=== PATIENT | female | born 1965 | race Caucasian/White ===

== ENCOUNTER 2019-07-21 11:49 | Emergency (ER) | payer BC ==
--- OUTSIDE RECORDS SUMMARY | 2019-07-21 13:38 | XMS REPORT | Continuity of Care Document ---
:1965 Author Organization [facility] Care Team Providers Name Role Phone ROSIE STANTON Primary Care Physician Allergies and Intolerances No Allergy Data in the System Medications No Known Medications Medications At Time Of Discharge No data in the system Problems No Data in the system Procedures Code Code System Procedure Date 71005 CPT4 93429 COLONOSCOPY W/BIOPSY SINGLE/MULTIP 05/21/2019 Results Pathology Results Order:PATHOLOGY CYTOLOGY HISTOLCollected Date : 05/21/2019 12:00:00 AM TISSUE RECTAL POLYP CLINICAL DIAGNOSIS SCREENING FINAL DIAGNOSIS COLON, RECTUM, POLYPECTOMY: FRAGMENTS OF HYPERPLASTIC POLYP. GROSS A. SPECIMEN IS RECEIVED IN FORMALIN LABELLED TAWNY ALFARO, WITH MEDICAL RECORD NUMBER, DATE OF AND "POLYP, RECTUM", AND CONSISTS OF A 0.2 CM. IN DIAMETER FRAGMENT OF BOWLING TISSUE. THE ENTIRE CONTENTS OF THE CONTAINER IS SUBMITTED IN 1 CASSETTE. (CG/BONG) NILSA JARQUIN D.O. , PATHOLOGIST (CASE SIGNED 05/22/2019) Social History Code Code System Social History Observation Description Dates Observed 618371754 SNOMED CT Current Smoking Status Never smoker UNK AdministrativeGender Sex Assigned At Unknown Vital Signs No data in the system Goals Section No data in the system Health Concerns No data in the systemEncounter Diagnosis Date Code Code System Diagnosis Status Z12.11 ICD10 ENC SCREEN MALIG NEOPLASM COLON Active Advance Directives *RHIO - CONSENT IS YES Directive Type Effective Date Grinding Room Inspector Notes Supporting Document Name Address Phone No Directive Type 05/21/2019 8:00:08 Not Specified Not Specified Not Specified None No specified AM Encounters Encounter Diagnosis Location Date ENC SCREEN MALIG NEOPLASM COLON [facility] 05/21/2019 Family History Family history not obtained Functional Status No data in the system Immunizations No data in the system Medical Equipment No data in the system Mental Status No data in the system Assessment and Plan Assessments No data in the systemPlan Of Treatment No data in the systemPending Tests No data in the system Hospital Discharge Instructions No data in the system Reason for Visit No data in the system
--- OUTSIDE RECORDS SUMMARY | 2019-07-21 13:38 | XMS REPORT ---
:[address] [facility] Address [address] [place] [address] Care Team Providers Name Role Phone Halima Galvan Unavailable Unavailable PROBLEMS Type Condition ICD9-CM Code ANN80-QF Code Onset Condition SNOMED Code Dates Status Problem Leiomyoma of D25.9 Active 16941484 uterus, unspecified Problem Family history Z80.3 Active 244256904 of malignant neoplasm of breast ALLERGIES No Known Allergies ENCOUNTERS Encounter Location Date Diagnosis [facility] [address] [place] [address] Jun, Encounter for [address] [place], gynecological examination [place] [id number] (general) (routine) with abnormal findings Z01.411 ; Family history of malignant neoplasm of breast Z80.3 ; Encounter for screening mammogram for malignant neoplasm of breast Z12.31 ; Encounter for screening for malignant neoplasm of colon Z12.11 ; Encounter for screening for infections with a predominantly sexual mode of transmission Z11.3 and Pityriasis versicolor B36.0 [facility] [address] [facility] Sep, Family history of Road [address] [place], malignant neoplasm of [place] [id number] breast Z80.3 [facility] 103 Mar, OBG[place] [id number] [facility] [address] [place] [address] Mar, Encounter for [address] [place], gynecological examination [place] [id number] (general) (routine) without abnormal findings Z01.419 ; Family history of malignant neoplasm of breast Z80.3 ; Encounter for screening for malignant neoplasm of cervix Z12.4 ; Encounter for screening mammogram for malignant neoplasm of breast Z12.31 and Encounter for screening for malignant neoplasm of colon Z12.11 [facility] 103 Aug, OBGYN [place], [place] [id number] [facility] 103 Apr, OBGYN [place], [place] [id number] [place] [facility] [address] [place] [facility] Apr, Family history of Road [address] [place], malignant neoplasm of [place] [id number] breast Z80.3 [facility] [address] [place] [facility] Sep, Encounter for [address] [place], gynecological examination [place] [id number] (general) (routine) without abnormal findings Z01.419 ; Encounter for screening mammogram for malignant neoplasm of breast Z12.31 ; Encounter for screening for malignant neoplasm of colon Z12.11 and Family history of malignant neoplasm of breast Z80.3 [facility] 103 Sep, OBGYN [place] [id number] [facility] 103 Jul, OBG[place] [id number] [facility] [address] [facility] Jul, ROUTINE TEMPORARY RECEPTIONIST EXAMINATION Road [address] [place] [address], V72.31 ; SCREEN MALIG [place] [id number] NEOP-COLON V76.51 ; SCREEN MAMMOGRAM NEC V76.12 and Irregular bleeding NOS 626.4 [facility] 103 Jun, OBG[place] [id number] [facility] 103 Jun, OBG[place], [place] [id number] [facility] 103 Jun, OBG[place] [id number] [facility] [address] [place] [facility] Mar, Irregular bleeding NOS [address] [place], 626.4 and Submucous [place] [id number] leiomyoma of uterus 218.0 [facility] [address] [facility] Feb, [address] [place], 626.4 [place] [id number] [facility] 103 16 Feb, 2014 Irregular bleeding NOS OBGYN [facility], 626.4 [place] [id number] [facility] 103 Feb, Irregular bleeding NOS OBGYN [facility], 626.4 and Submucous [place] [id number] leiomyoma of uterus 218.0 [place] [facility] [facility] Feb, Irregular bleeding NOS [address] [place], 626.4 [place] [id number] [facility] 103 Dec, [place] 782.62 and OBGYN [facility], Menopausal symptoms 627.2 [place] [id number] [facility] 103 October, OBGYN [place] [id number] [facility] [address] [facility] Sep, [place] [address] [place], Breast Mass [id number] [facility] 103 Jul, OBG[place] [id number] [place] [facility] [address] [facility] Jun, ROUTINE TEMPORARY RECEPTIONIST EXAMINATION Road [address] [place], V72.31 ; PAP SMEAR W/O [place] [id number] TEMPORARY RECEPTIONIST EXAM V76.2 ; SCREEN MAMMOGRAM NEC V76.12 ; Breast Mass 611.72 and CONTRACEPTIVE MANGMT NOS V25.9 [facility] [facility] 103 May, OBGYN [place] [id number] [facility] 103 May, OBG[place], [place] [id number] [facility] Feb, OBG[place] [id number] [facility] 14 Nov, 2012 OBGYN [place] [id number] [facility] [address] 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 103 Dec, OBGYN [place], [place] [id number] [facility] 103 October, OBGYN [place], [place] [id number] [facility] [address] 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 [address] [facility] October, Irregular bleeding NOS [address] [place], 626.4 ; Endometrial polyp [place] [id number] 621.0 and Submucous leiomyoma of uterus 218.0 [facility] 103 Sep, Irregular bleeding NOS OBGYN [facility], 626.4 ; Endometrial polyp [place] [id number] 621.0 and Submucous leiomyoma of uterus 218.0 [place] [facility] [address] [facility] Sep, Irregular bleeding NOS [address] [place], 626.4 [place] [id number] [facility] 103 Sep, Irregular bleeding NOS OBGYN [facility], 626.4 [place] [id number] [facility] 103 04 Sep, 2011 Irregular bleeding NOS OBGYN [facility], 626.4 ; Endometrial polyp [place] [id number] 621.0 and Submucous leiomyoma of uterus 218.0 [facility] [address] [facility] Aug, Irregular bleeding NOS [address] [place], 626.4 [place] [id number] [facility] [address] [place] [address] Apr, ROUTINE TEMPORARY RECEPTIONIST EXAMINATION Road [address] [place], V72.31 ; PAP SMEAR W/O [place] [id number] TEMPORARY RECEPTIONIST EXAM V76.2 and CONTRACEPT SURVEILL NOS V25.40 [facility] 103 Mar, OBGYN [facility], [place] [id number] [facility] [address] [place] [address] Mar, [address] [place], [place] [id number] [facility] [address] [place] [address] Mar, Elevated blood pressure [address] [place], reading without diagnosis [place] [id number] of hypertension 796.2 [facility] [address] [place] [address] Mar, ROUTINE TEMPORARY RECEPTIONIST EXAMINATION Road [address] [place], V72.31 ; CONTRACEPT [place] [id number] SURVEILL NOS V25.40 ; Elevated blood pressure reading without diagnosis of hypertension 796.2 and Weight gain 783.1 IMMUNIZATIONS No Known Immunizations SOCIAL HISTORY Never Assessed REASON FOR REFERRAL FUNCTIONAL STATUS PLAN OF CARE Activity Details Follow Up Schedule 1 year annual, schedule Mammogram,CBE in 6 months. Reason: Pending Test OCCULT BLOOD SCREEN 1-3 Pending Test Chlamydia Trachomatis CT Neisseria Gonorrhoeae NG & Trichomonas vaginalis Swab Pending Test Treponema Antibody Bond Pending Test ANTIBODY DETECTION-HIV1/2 SCRN Pending Test HEPATITIS B SURFACE ANTIGEN Pending Test HEPATITIS C ANTIBODY Pending Test SCREENING MAMMOGRAM BILATERAL VITAL SIGNS Height 64 in 2019-07-04 Weight 126 lbs 2019-07-04 BMI 21.63 kg/m2 2019-07-04 Blood pressure systolic 120 mm Hg 2019-07-04 Blood pressure diastolic 70 mm Hg 2019-07-04 MEDICATIONS Medication Instructions Dosage Frequency Start End Date Duration Status Date ketoconazole applied 1 tk 24h Jun, day(s) Active topical 2% topically once a 2020 day Vitamin D3 1000 orally once a 1 tab(s) 24h Active intl units day PROCEDURES Procedure Date Ordered Result Body Site ASSAY TEST FOR BLOOD, FECAL Jul 04, 2019 VENIPUNCT, ROUTINE* Jul 04, 2019 RESULTS No Results REASON FOR VISIT Annual visit, wants rash checked under right arm pit area.. wants STD testing Insurance Providers [facility] Member Patient Patient Patient Patient Patient Subscriber Subscriber Subscriber Group Insurance Plan Plan Plan Plan ID Relationship Address Phone Name Date of ID Name Date of No Type Insurance Insurance Insurance Coverage to Subscriber Address Phone Name Dates Ezio [phone] Ezio Gabriel [id number] Plan for [address] [place] [address] Plan for [facility] Gov[employer] Employees [place] Employees [id number] MEDICAL (GENERAL) HISTORY Type Description Date Medical History MVP - doesn't need abx Medical History mild scoliosis Medical History Irregular bleeding NOS Medical History Submucous leiomyoma of uterus Medical History Endometrial polyp Medical History Levator syndrome Surgical History Tonsillectomy 1969 Surgical History [place] Teeth 1978 Surgical History hysteroscopy, D&C, polypectomy, myomectomy for prolonged bleeding. Hospitalization History see above Hospitalization History childbirth
--- OUTSIDE RECORDS SUMMARY | 2019-07-21 13:38 | XMS REPORT ---
:1965 Author Organization [facility] Address [address] [place] [address] Care Team Providers Name Role Phone Mart Rosa Unavailable Unavailable PROBLEMS Type Condition ICD9-CM Code IOO04-WS Code Onset Condition SNOMED Code Dates Status Problem Leiomyoma of D25.9 Active 33476538 uterus, unspecified Problem Family history Z80.3 Active 812858685 of malignant neoplasm of breast ALLERGIES No Information ENCOUNTERS Encounter Location Date Diagnosis [facility] [address] [place] [address] Jul, [address] [id number] [facility] Dec, Road [address] [id number] [facility] 103 Jul, OBGYN [place], [place] [id number] [facility] [address] [place] [address] Jun, [address], gynecological examination [place] [id number] (general) (routine) with abnormal findings Z01.411 ; Family history of malignant neoplasm of breast Z80.3 ; Encounter for screening mammogram for malignant neoplasm of breast Z12.31 ; Encounter for screening for malignant neoplasm of colon Z12.11 ; Encounter for screening for infections with a predominantly sexual mode of transmission Z11.3 and Pityriasis versicolor B36.0 [facility] [address] [facility] Sep, Family history of Road [address] [place], malignant [place]oplasm [place] [id number] breast Z80.3 [facility] 103 Mar, OBGYN [place], [place] [id number] [place] [facility] Mar, Encounter for Road [address], gynecological examination [place] [id number] (general) (routine) without abnormal findings Z01.419 ; Family history of malignant neoplasm of breast Z80.3 ; Encounter for screening for malignant neoplasm of cervix Z12.4 ; Encounter for screening mammogram for malignant neoplasm of breast Z12.31 and Encounter for screening for malignant neoplasm of colon Z12.11 [facility] 103 Aug, OBG[place], [place] [id number] [facility] 103 Apr, OBG[place], [place] [id number] [place] [facility] [address] [facility] Apr, Family history of Road [address], malignant [place]oplasm [place] [id number] breast Z80.3 [place] [facility] [address] [facility] Sep, Encounter for Road [address], gynecological examination [place] [id number] (general) (routine) without abnormal findings Z01.419 ; Encounter for screening mammogram for malignant neoplasm of breast Z12.31 ; Encounter for screening for malignant neoplasm of colon Z12.11 and Family history of malignant neoplasm of breast Z80.3 [facility] 103 Sep, OBGYN [place] [id number] [facility] 103 Jul, OBG[place], [place] [id number] [place] [facility] [address] [facility] Jul, ROUTINE BLAST SETTER EXAMINATION [address], V72.31 ; SCREEN MALIG [place] [id number] NEOP-COLON V76.51 ; SCREEN MAMMOGRAM NEC V76.12 and Irregular bleeding NOS 626.4 [facility] 103 Jun, OBG[place] [id number] [facility] 103 Jun, OBG[place], [place] [id number] [facility] 103 Jun, OBG[place], [place] [id number] [place] [facility] [address] [facility] Mar, Irregular bleeding NOS [address] [place], 626.4 and Submucous [place] [id number] leiomyoma of uterus 218.0 [place] [facility] [address] [facility] Feb, Irregular bleeding NOS [address] [place], 626.4 [place] [id number] [facility] 103 Feb, Irregular bleeding NOS OBGYN [facility], 626.4 [place] [id number] [facility] 103 Feb, Irregular bleeding NOS OBGYN [facility], 626.4 and Submucous [place] [id number] leiomyoma of uterus 218.0 [place] [facility] [address] [facility] Feb, Irregular bleeding NOS [address] [place], 626.4 [place] [id number] [facility] 103 Dec, [place] 782.62 and OBGYN [facility], Menopausal symptoms 627.2 [place] [id number] [facility] 103 October, OBG[place] [id number] [place] [facility] [address] [facility] Sep, [place] [address]82.[address] [place], Breast Mass 611.72 [place] [id number] [facility] 103 02 Jul, 2013 OBG[place], [place] [id number] [place] [facility] [address] [facility] Jun, ROUTINE BLAST SETTER EXAMINATION Road [address] [place], V72.31 ; PAP SMEAR W/O [place] [id number] BLAST SETTER EXAM V76.2 ; SCREEN MAMMOGRAM NEC V76.12 ; Breast Mass 611.72 and CONTRACEPTIVE MANGMT NOS V25.9 [facility] 103 May, OBG[place], [place] [id number] [facility] 103 May, OBG[place] [id number] [facility] 103 Feb, OBG[place], [place] [id number] [facility] 103 14 Nov, 2012 OBG[place], [place] [id number] [facility] [address] [facility] May, ROUTINE BLAST SETTER EXAMINATION Road [address] [place], V72.31 ; PAP SMEAR W/O [place] [id number] BLAST SETTER EXAM V76.2 ; SCREEN MAMMOGRAM NEC V76.12 and 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 [facility] [address] October, Medical [place], [place] [id number] [facility] [address] [facility] October, Irregular bleeding NOS [address] [place], 626.4 ; Endometrial polyp [place] [id number] 621.0 and Submucous leiomyoma of uterus 218.0 [facility] 103 Sep, Irregular bleeding NOS OBGYN [facility], 626.4 ; Endometrial polyp [place] [id number] 621.0 and Submucous leiomyoma of uterus 218.0 [facility] [address] [place] [address] Sep, Ir[address] bleeding NOS [address] [place], 626.4 [place] [id number] [facility] 103 Sep, Irregular bleeding NOS OBGYN [facility], 626.4 [place] [id number] [facility] 103 Sep, Irregular bleeding NOS OBGYN [facility], 626.4 ; Endometrial polyp [place] [id number] 621.0 and Submucous leiomyoma of uterus 218.0 [facility] [address] [place] [address] Aug, Irregular bleeding NOS [address] [place], 626.4 [place] [id number] [facility] [address] [place] [address] Apr, ROUTINE BLAST SETTER EXAMINATION Road [address] [place], V72.31 ; PAP SMEAR W/O [place] [id number] BLAST SETTER EXAM V76.2 and CONTRACEPT SURVEILL NOS V25.40 [facility] 103 Mar, OBG[place], [place] [id number] [facility] [address] [place] [address] Mar, [address] [place], [place] [id number] [facility] [address] [place] [address] Mar, Elevated blood pressure [address] [place], reading without diagnosis [place] [id number] of hypertension 796.2 [facility] [address] [place] [address] Mar, ROUTINE BLAST SETTER EXAMINATION Road [address] [place], V72.31 ; CONTRACEPT [place] [id number] SURVEILL NOS V25.40 ; Elevated blood pressure reading without diagnosis of hypertension 796.2 and Weight gain 783.1 IMMUNIZATIONS No Known Immunizations SOCIAL HISTORY Never Assessed REASON FOR REFERRAL FUNCTIONAL STATUS PLAN OF CARE VITAL SIGNS MEDICATIONS Unknown Medications PROCEDURES No Known procedures RESULTS No Results REASON FOR VISIT Bill Insurance Providers Count Includes [facility] Health Member Patient Patient Patient Patient Patient Subscriber Subscriber Subscriber Group Insurance Plan Plan Plan Plan ID Relationship Address Phone Name Date of ID Name Date of No Type Insurance Insurance Insurance Coverage to Subscriber Address Phone Name Dates Ezio [phone] Ezio Gabriel [id number] Plan for [id number] Plan for [facility] Gov[employer] [facility] Govt[employer] Employees [place] Employees [phone] MEDICAL (GENERAL) HISTORY Type Description Date Medical History MVP - doesn't need abx Medical History mild scoliosis Medical History Irregular bleeding NOS Medical History Submucous leiomyoma of uterus Medical History Endometrial polyp Medical History Levator syndrome Surgical History Tonsillectomy 1969 Surgical History [place] Teeth 1978 Surgical History hysteroscopy, D&C, polypectomy, myomectomy for prolonged bleeding. Hospitalization History see above Hospitalization History childbirth
--- NOTE | 2019-07-21 13:51 | UC ---
FLU HPI - HPI Summary HPI Summary: 54 yo female presents with sinus symptoms. She tells me that for about 2 weeks she has had a dry cough, post nasal drip, sore throat, and runny nose. She has been taking OTC cold medicine with good relief. [place] much better 07/19 and 07/20. This morning she woke with worse symptoms - sinus pain/pressure/congestion on right side with frontal headache. Feels fatigued. Sinuses burn and she feels congestion. Denies fever, chills, sore throat, SOB, chest pain, rash, abdominal pain, n/v. - History of Current Complaint Stated Complaint: COLD SYMPTOMS Time Seen by Provider: 07/21/19 13:51 Hx Obtained From: Patient Onset/Duration: Gradual Onset Severity Currently: Moderate Severity Initially: Moderate Pain Intensity: 7 Pain Scale Used: 0-10 Numeric - Allergy/Home Medications Allergies/Adverse Reactions: Allergies Allergy/AdvReac Type Severity Reaction Status Date / Time No Known Allergies Allergy Verified 07/21/19 14:00 PMH/Surg Hx/FS Hx/Imm Hx - Additional Past Medical History Additional PMH: None - Surgical History Surgical History: None - Family History Known Family History: Positive: None - Social History Occupation: Employed Full-time Lives: With Family Alcohol Use: Occasionally Substance Use Type: None Smoking Status (MU): Never Smoked Tobacco Review of Systems All Other Systems Reviewed And Are Negative: No Constitutional: Positive: Negative Skin: Positive: Negative Eyes: Positive: Negative ENT: Positive: Sore Throat - resolved, Nasal Discharge, Sinus Congestion, Sinus Pain/Tenderness Respiratory: Positive: Cough - resolved Cardiovascular: Positive: Negative Gastrointestinal: Positive: Negative Neurovascular: Positive: Negative Neurological/Mental Status: Positive: Negative Psychological: Positive: Negative Physical Exam - Summary Physical Exam Summary: GENERAL: NAD. WDWN. No pain distress. SKIN: No rashes, sores, lesions, or open wounds. HEENT: Head: AT/NC Eyes: EOM intact. Conjunctiva clear without inflammation or discharge. Ears: Hearing grossly normal. TMs intact, no bulging, erythema, or edema. Nose: Nasal mucosa mildly swollen and erythematous R>L with yellow discharge. RIGHT TTP maxillary and frontal sinus. Positive post nasal drip Throat: Posterior oropharynx without exudates, erythema, or tonsillar enlargement. Uvula midline. NECK: Supple. Nontender. No lymphadenopathy. CHEST: CTAB. No r/r/w. No accessory muscle use. Breathing comfortably and in no distress. CV: RRR. Pulses intact. NEURO: Alert. PSYCH: Age appropriate behavior. Triage Information Reviewed: Yes Vital Signs: Vital Signs: Temp Pulse Resp BP Pulse Ox 97.9 F 68 18 133/79 99 07/21/19 13:56 07/21/19 13:56 07/21/19 13:56 07/21/19 13:56 07/21/19 13:56 Vital Signs Reviewed: Yes Flu Course/Dx - Course Course Of Treatment: Sinusitis - Differential Dx/Diagnosis Provider Diagnosis: Sinusitis Discharge ED - Sign-Out/Discharge Documenting (check all that apply): Patient Departure All imaging exams completed and their final reports reviewed: No Studies - Discharge Plan Condition: Stable Disposition: HOME Prescriptions: Amoxicillin PO (*) [Amoxicillin 875 MG (*)] 875 mg PO BID #14 tab Fluticasone NASAL SPRAY 50MCG* [Flonase NASAL SPRAY 50MCG*] 2 spray BOTH NARES DAILY #1 btl Patient Education Materials: Sinusitis (ED) Referrals: August CARLTON,Rudy Carter [Primary Care Provider] - Additional Instructions: If you develop a fever, shortness of breath, chest pain, new or worsening symptoms - please call your PCP or go to the ED immediately. - Billing Disposition and Condition Condition: STABLE Disposition: Home
[2019-07-21 13:59] VITALS: BP 133/79
[2019-07-21 14:29] LABS: Influenza A Molecular Negative (Negative); Influenza B Molecular Negative (Negative)
== END 2019-07-21 14:20 | disposition home or self-care (01) ==
LOC: UCEAST 11:49
DX: J32.9 Chronic sinusitis, unspecified (principal)
CPT/HCPCS: 99212; G0463